=== PATIENT | male | born 1990 | race Asian ===

== ENCOUNTER 2018-02-13 13:27 | Outpatient (CLI) | payer OTHER | END 2018-02-13 23:59 | disposition home or self-care (01) | LOC: RAD 13:27 | PROVIDERS: ATTEND Nurse Practitioner Family | DX: N50.819 Testicular pain, unspecified (principal) | CPT/HCPCS: 76870 ==

== ENCOUNTER 2018-07-09 19:46 | Emergency (ER) | payer OTHER ==
[~2018-07-09] VITALS: Ht 180.3 cm; Wt 97.7 kg
[2018-07-09 19:59] VITALS: BP 128/81
[2018-07-09] MEDS ORDERED: bacitracin ointment unit dose packet TP STA (20:03)
[2018-07-09] MEDS ORDERED: AMOX-422 PO (20:05)
[2018-07-09] MEDS ORDERED: bacitracin 15gm ointment TP STA (20:16)
== END 2018-07-09 20:28 | disposition home or self-care (01) ==
LOC: ER 19:46
DX: S51.051A Open bite, right elbow, initial encounter (principal); Z88.6 Allergy status to analgesic agent; Z79.2 Long term (current) use of antibiotics; W54.0XXA Bitten by dog, initial encounter; Y93.89 Activity, other specified; Y92.89 Other specified places as the place of occurrence of the external cause; Y99.8 Other external cause status
CPT/HCPCS: 99283

== ENCOUNTER 2019-06-10 16:02 | Emergency (ER) | payer OTHER ==
[2019-06-10 16:13] VITALS: BP 142/90
[2019-06-10 17:52] LABS: HIV ANTIBODY 1&2 RAPID NON-REACTIVE (Neg)
[2019-06-12 06:13] LABS: HBSAG SCREEN Negative (Negative); HEPATITIS C ANTIBODY <0.1 s/co ratio (0.0-0.9)
== END 2019-06-10 17:28 | disposition home or self-care (01) ==
LOC: ER 16:03
DX: Z77.21 Contact with and (suspected) exposure to potentially hazardous body fluids (principal); Z88.8 Allergy status to other drugs, medicaments and biological substances
CPT/HCPCS: 36415; 86703; 86706; 86803; 87340; 99283

== ENCOUNTER 2021-05-29 06:02 | Emergency (ER) | payer OTHER ==
[~2021-05-29] VITALS: Ht 180.3 cm; Wt 100.0 kg
[2021-05-29] MEDS ORDERED: acetaminophen 325mg tablet PO ONE (06:10)
[2021-05-29 06:59] VITALS: BP 129/99
== END 2021-05-29 07:51 | disposition home or self-care (01) ==
LOC: ER 06:02
DX: S63.601A Unspecified sprain of right thumb, initial encounter (principal); S63.501A Unspecified sprain of right wrist, initial encounter; S60.011A Contusion of right thumb without damage to nail, initial encounter; Z88.8 Allergy status to other drugs, medicaments and biological substances; W20.8XXA Other cause of strike by thrown, projected or falling object, initial encounter; Y93.89 Activity, other specified; Y92.89 Other specified places as the place of occurrence of the external cause; Y99.8 Other external cause status
CPT/HCPCS: 29125; 73130; 99283

== ENCOUNTER 2025-07-22 22:34 | Emergency (ER) | payer OTHER ==
[~2025-07-22] VITALS: Ht 188 cm; Wt 75.0 kg
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
[2025-07-23 00:08] LABS: HIV ANTIBODY 1&2 RAPID NON-REACTIVE (Neg)
[2025-07-24 08:17] LABS: HEP B CORE AB, IGM Negative (Negative); HEP B CORE AB, TOT Negative (Negative)
== END 2025-07-23 03:41 | disposition home or self-care (01) ==
LOC: ER 22:34
DX: Z77.21 Contact with and (suspected) exposure to potentially hazardous body fluids (principal); Z88.5 Allergy status to narcotic agent
CPT/HCPCS: 36415; 86703; 86704; 86705; 99283